=== PATIENT | male | born 1950 | race Caucasian/White ===

== ENCOUNTER → 2018-04-13 10:13 | Outpatient (CLI) | payer OTHER, SELFPAY ==
[2018-04-13 12:07] LABS: Alanine Aminotransferase 39 IU/L (21-72); Albumin 4.5 g/dL (3.5-5.0); Albumin Globulin Ratio 1.1 (1.0-2.8); Alkaline Phosphatase 81 U/L (38-126); Aspartate Aminotransferase 29 IU/L (17-59); Bilirubin Total 0.6 mg/dL (0.2-1.3); Blood Urea Nitrogen 18 mg/dL (9-20); Calcium 10.2 mg/dL (8.4-10.2); Carbon Dioxide 30 mmol/L (22-32); Chloride 101 mmol/L (98-107); Cholesterol 267 mg/dL (140-199); Estimated Glomerular Filt Rate > 60.0 mL/min (>60); Glucose 114 mg/dL (80-110); HDL Cholesterol 43 mg/dL (40-60); HEMOLYSIS < 15 (0-50); LDL Cholesterol Calculated 208 mg/dL (<100); Sodium 145 mmol/L (137-145); Total Protein 8.5 g/dL (6.3-8.2); Triglycerides 79 mg/dL (35-150)
[2018-04-13 12:31] LABS: Prostate Specific Antigen Scrn 2.85 ng/mL (0.1-4.0)
[2018-04-13 12:33] LABS: TSH w/ Reflex to FT4 1.62 uIU/mL (0.47-4.68)
== END ==
PROVIDERS: PCP Internal Medicine; Visit Provider Internal Medicine
DX: I10 Essential (primary) hypertension (principal); Z13.6 Encounter for screening for cardiovascular disorders; Z12.5 Encounter for screening for malignant neoplasm of prostate
CPT/HCPCS: 36415; 80053; 80061; 84443; G0103

== ENCOUNTER → 2018-12-06 08:08 | Outpatient (CLI) | payer OTHER, SELFPAY ==
--- NOTE | 2018-12-06 09:21 | PM.TREADMILL ---
Cardiac Stress Test Report Referral & Results Date Patient Seen: 12/06/18 Requesting provider: John Snider Indication: EKG change Rest ECG: Right bundle branch block Procedure Note: Today following both written and verbal informed consent, patient was initially exercised according to a standard Josef protocol. Patient was 1st looked up to the treadmill monitoring system and had an IV started by the diagnostic imaging nursing staff. Less than 2 minutes into stage I of Josef protocol patient experience significant leg pain consistent with possible vascular claudication and was soon going to have to discontinue exercise. Heart rate had yet to barely had 100 and was nowhere near his target. Therefore the test was converted to a Lexiscan test. Treadmill was returned to a 1 mi an hour with no elevation position and patient walk for an additional 3 minutes. He was immediately given Lexiscan followed by Cardiolite when the test was switched Patient experienced some mild dyspnea which was resolving by end of monitoring period. Patient did have frequent PVCs at rest including ventricular couplets and far fewer in fact none at all as heart rate increased above 90. There was return of PVCs as heart rate slowed back down in the recovery portion of the test. Impression: Lower extremity symptoms consistent with vascular claudication No noticeable changes otherwise. Normal response to infuse materials. Please see perfusion imaging report for details regarding possible cardiac ischemia Please note: Actual ECG tracings can be found in the PACS system.
--- NOTE | 2018-12-10 14:53 | DI.NM.S_ITS ---
DATE OF SERVICE: 12/06/2018 PROCEDURE PERFORMED: Exercise treadmill stress converted to pharmacologic vasodilator stress and rest myocardial perfusion imaging with gating to assess ejection fraction and regional wall motion. ORDERING PROVIDER: John Snider MD INDICATIONS: The patient is a 68-year-old smoker was significant COPD with recent emergency room evaluation for dyspnea and was found to have an abnormal ECG. CARDIAC STRESS: The patient was initially stressed by exercising utilizing a standard Josef protocol but the patient was unable to walk for more than 2 minutes and therefore was converted to a pharmacologic stress protocol with the injection of 0.4 mg of regadenoson. With this, the patient had a normal hemodynamic response and had no chest discomfort. His peak heart rate was 111 bpm (73% of his predicted maximum). He had a normal blood pressure response. He apparently had some limiting leg discomfort which could reflect claudication. His resting ECG shows an RBBB with borderline inferior Q waves. With stress, there are frequent PVCs, at times in couplets, but there are no significant ST- segment shifts. Per protocol, 24.8 mCi of technetium-99 Myoview was injected and the patient was imaged 15 minutes later using a gated SPECT acquisition protocol. He returned the following day and was reinjected with an additional 25.5 mCi of technetium- 99 Myoview and was imaged 30 minutes later, again using a gated SPECT acquisition protocol. FINDINGS: 1. Raw Data: There is fair myocardial tracer uptake. The lung/heart ratio is normal at 0.24 with a borderline elevated TID ratio of 1.25 but is nonspecific with vasodilator stress. 2. Quantitative Gated SPECT: Post stress ejection fraction is estimated at 43% with akinesis of the inferior, inferolateral, and lateral wall. The resting ejection fraction is calculated at 34% but visually appears to be similar to that of the post stress images and with a similar wall motion. Resting end- diastolic volume is mildly increased at 147 mL. 3. Myocardial Perfusion Imaging: Post stress supine images shows absent perfusion in the entire inferior wall from apex to base extending into the inferolateral segment and the lateral segment proximally. This defect persists on the prone images as well. The resting images show an identical perfusion pattern, although with slight improvement of the base of the lateral wall and in the very distal inferoapical segment. The amount of reversibility, however, is minimal. CONCLUSIONS: 1. Abnormal myocardial perfusion study. 2. Fairly large, predominantly fixed perfusion defect involving the entire inferior and inferolateral segment consistent with transmural myocardial infarction with mild phylicia-infarct ischemia localized primarily to the proximal lateral wall and a small area at the inferoapex. 3. Moderately reduced left ventricular systolic function with a sizable wall motion abnormality corresponding to the perfusion defect above, consistent with previous infarction. 4. Markedly reduced exercise capacity but no clear evidence of angina or ECG evidence of ischemia. There were frequent PVCs, rarely and couplets, but no other complex ventricular ectopy. Cesar Rivas - NIKOLE/ja/ab doc#: [id number]/job#: [id number] dd: 12/07/2018 12:43:00 dt: 12/07/2018 13:49:00 DICTATING MD/COPIES TO: Casimiro Sargent MD; John Snider MD COPIES MNE: JHONATAN CORCORAN
== END ==
PROVIDERS: Family Provider Internal Medicine; PCP Internal Medicine; Visit Provider Internal Medicine
DX: R94.39 Abnormal result of other cardiovascular function study (principal); R94.31 Abnormal electrocardiogram [ECG] [EKG]; I49.3 Ventricular premature depolarization; J44.9 Chronic obstructive pulmonary disease, unspecified; R06.00 Dyspnea, unspecified; M79.606 Pain in leg, unspecified; F17.200 Nicotine dependence, unspecified, uncomplicated
CPT/HCPCS: 78452; 93016; 93017; 93018; A9502; J2785

== ENCOUNTER → 2018-12-16 14:55 | Outpatient (CLI) | payer OTHER, SELFPAY ==
--- NOTE | 2018-12-16 14:57 | DI.US.S_ITS ---
PROCEDURE: US ARTERIAL DUPLEX LE BI INDICATIONS: claudication TECHNIQUE: Color and pulse Doppler interrogation was performed of both lower extremity arterial systems, with image documentation. COMPARISON: None. FINDINGS: Right lower extremity: Common femoral artery: 124 cm/sec, with monophasic flow. Deep femoral artery: 113 cm/sec, with monophasic flow. Proximal superficial femoral artery: 54 cm/sec, with monophasic flow. Mid superficial femoral artery: 219 cm/sec, with monophasic flow. Distal superficial femoral artery: 21 cm/sec, with monophasic flow. Popliteal artery: 17-26 cm/sec, with monophasic flow. Posterior tibial artery: 6-11 cm/sec, with monophasic flow. Anterior tibial artery/dorsalis pedis: 5-16 cm/sec, with monophasic flow. Dupont-scale imaging description: Moderate diffuse plaque Left lower extremity: Common femoral artery: 88 cm/sec, with monophasic flow. Deep femoral artery: 125 cm/sec, with monophasic flow. Proximal superficial femoral artery: 24 cm/sec, with monophasic flow. Mid superficial femoral artery: 28 cm/sec, with monophasic flow. Distal superficial femoral artery: 28 cm/sec, with monophasic flow. Popliteal artery: 11-21 cm/sec, with monophasic flow. Posterior tibial artery: 13-16 cm/sec, with monophasic flow. Anterior tibial artery/dorsalis pedis: 11-15 cm/sec, with monophasic flow. Dupont-scale imaging description: Moderate diffuse plaque IMPRESSION: 1. Monophasic bilateral lower extremity waveforms, suggestive of aortoiliac inflow stenoses. 2. Right-sided outflow stenosis. 3. These lesions may be amenable to percutaneous endovascular therapy, if clinically warranted. Interventional radiology consultation recommended. This can be arranged via [facility] radiology scheduling. Dictated by: Lacy Hansen M.D. on 12/16/2018 at 17:37 Approved by: Lacy Hansen M.D. on 12/16/2018 at 17:45
--- NOTE | 2018-12-16 14:57 | DI.ECHO.S_ITS ---
[facility]+ [facility] +---------+ : : [address] : : : : [id number] : : : : Phone: [phone]+ Echocardiogram Report + + :Name: DAVID MUNGUIA Study Date: 12/16/2018 Height: 69 in : :[facility] Exam Location: [facility] Weight: 148 lb : : Gender: Male BSA: 1.8 m2 : :: 1950 Age: 68 yrs BP: 142/80 mmHg: :Reason For Study: CAD : :Ordering Physician: Dr. Lopez : :Agatha Performed By: Catia Page : + + Interpretation Summary 1) Normal left ventricular size and systolic function (EF 50-55%). 2) Basal inferior wall and basal to mid inferolateral wall are severely hypokinetic. 3) Normal right ventricular size and function. 4) No significant valvular abnormalities. 5) No prior Echo available for comparison. Procedure: A two-dimensional transthoracic echocardiogram with color flow and Doppler was performed. The study quality was technically adequate. There is no prior echocardiogram noted for this patient. The patient was in normal sinus rhythm during the exam. The heart rate ranged between 56-63 bpm during the study. Left Ventricle: The left ventricle is normal in size. Left ventricular wall thickness is borderline increased. The ejection fraction is estimated to be 50-55%. Left ventricular systolic function is low normal. Basal inferior wall and basal to mid inferolateral wall are severely hypokinetic. Right Ventricle: The right ventricle is normal in size and function. Atria: The left atrium is mildly dilated. Right atrial size is normal. There is no Doppler evidence for an interatrial shunt. Mitral Valve: The mitral valve is normal in structure and function. There is trace mitral regurgitation. Aortic Valve: The aortic valve is trileaflet. The aortic valve opens well. No aortic regurgitation is present. Tricuspid Valve: The tricuspid valve is normal in structure and function. There is a trace or physiologic amount of tricuspid regurgitation. Pulmonary artery pressures cannot be estimated because of the lack of a measurable TR jet velocity. Pulmonic Valve: The pulmonic valve is not well visualized. There is trace pulmonic regurgitation. Great Vessels: The aortic root is normal size. The ascending aorta is normal in size. The pulmonary is not well visualized. The IVC is of normal diameter and collapses greater than 50% with a sniff. This suggests a low right atrial pressure of 3 mm Hg. Pericardium/ Pleura There is no pericardial effusion. There is no pleural effusion. MMode/2D Measurements & Calculations LVIDd: 4.5 cm Ao root diam: 3.6 cm LVIDs: 3.6 cm asc Aorta Diam: 3.2 cm FS: 21.1 % EPSS: 0.69 cm IVSd: 1.0 cm LVPWd: 1.1 cm LV zacarias. diameter/BSA (cm/m^2): 2.5 LV sys. diameter/BSA (cm/m^2): 2.0 LA A2 area: 19.9 cm2 RA long axis: 4.6 cm LA A4 area: 19.0 cm2 RA area: 17.4 cm2 LA length (vol): 5.0 cm RA vol: 55.7 ml LA vol: 64.2 ml RA : 30.7 ml/m2 LA vol index: 35.3 ml/m2 IVC diam: 1.8 cm RVD1 (basal): 4.1 cm TAPSE: 2.4 cm Doppler Measurements & Calculations Ao V2 max: 96.3 cm/sec LVOT Max Jose: 79.1 cm/sec Ao V2 mean: 68.1 cm/sec LV V1 max P.5 mmHg Ao max P.7 mmHg LV V1 VTI: 15.6 cm Ao mean P.0 mmHg sev ratio: 0.76 Ao V2 VTI: 20.4 cm MV E max jose: 50.4 cm/sec PA V2 max: 77.3 cm/sec MV A max jose: 70.4 cm/sec PA V2 mean: 53.1 cm/sec MV E/A: 0.72 PA mean P.3 mmHg Med Peak E' Jose: 4.6 cm/sec PA Accel Time: 0.11 sec E/E' med: 10.8 Lat Peak E' Jose: 6.6 cm/sec E/E' lat: 7.6 E/e' average: 9.2 MV dec time: 0.22 sec MV P1/2t: 65.2 msec MV P1/2t max jose: 51.0 cm/sec MVA(P1/2t): 3.4 cm2 Reading Physician:05:40 PM
== END ==
PROVIDERS: Family Provider Internal Medicine; PCP Internal Medicine; Visit Provider Internal Medicine
DX: I73.9 Peripheral vascular disease, unspecified (principal); I25.10 Atherosclerotic heart disease of native coronary artery without angina pectoris
CPT/HCPCS: 93306; 93925